=== PATIENT | female | born 1980 | race Two or more races ===

== ENCOUNTER 2018-08-09 21:48 | Emergency (ER) | payer MEDICAID ==
[~2018-08-09] VITALS: Ht 160 cm; Wt 136.1 kg
[2018-08-09 21:58] VITALS: BP 152/100
== END 2018-08-09 23:42 | disposition home or self-care (01) ==
LOC: ER 22:02
DX: J40 Bronchitis, not specified as acute or chronic (principal)
CPT/HCPCS: A4606; Z7610

== ENCOUNTER 2018-09-29 11:40 | Emergency (ER) | payer MEDICAID ==
[~2018-09-29] VITALS: Ht 167.6 cm; Wt 186.0 kg
[2018-09-29 11:51] VITALS: BP 148/50
== END 2018-09-29 13:05 | disposition home or self-care (01) ==
LOC: ER 11:41
DX: R05 Cough (principal)
CPT/HCPCS: 71046

== ENCOUNTER 2018-10-05 15:20 | Emergency (ER) | payer MEDICAID ==
[~2018-10-05] VITALS: Ht 167.6 cm; Wt 181.9 kg
[2018-10-05 15:20] VITALS: BP 128/73
== END 2018-10-05 17:14 | disposition home or self-care (01) ==
LOC: ER 15:22
DX: J06.9 Acute upper respiratory infection, unspecified (principal)
CPT/HCPCS: 99283; A4606

== ENCOUNTER 2025-04-13 13:31 | Emergency (ER) | payer MEDICAID ==
[~2025-04-13] VITALS: Ht 167.6 cm; Wt 172.4 kg
[2025-04-13] MEDS ORDERED: ACET325C7 PO (14:33)
[2025-04-13 14:41] VITALS: BP 159/70; TEMP 98.5; O2SAT 97
== END 2025-04-13 14:42 | disposition home or self-care (01) ==
LOC: ER 13:38
DX: M67.833 Other specified disorders of tendon, right wrist (principal); E11.9 Type 2 diabetes mellitus without complications; M25.531 Pain in right wrist
CPT/HCPCS: 73090-TC